=== PATIENT | female | born 1960 | race Caucasian/White ===

== ENCOUNTER 2019-10-13 11:19 | Inpatient (IN) | payer BC ==
[~2019-10-13] VITALS: Ht 172.7 cm; Wt 47.2 kg
--- NOTE | ~2019-10-13 | EKG ---
[place], [place] ELECTROCARDIOGRAM REPORT NAME: SAGAR AGUDELO UNIT #: [id number] ROOM: [facility] DOCTOR: MARQUIS DRAFT REPORT BIRTHDATE: [birth year] [facility] Test Date: 2019-10-13 Test Time: 11:19:58 Pat Name: SAGAR AGUDELO Department: Room: [facility] Gender: F Otolaryngologist: : 1960 Requested By: KOKO CRUZ Order Number: [id number] Reading MD: German Stoddard MD Measurements Intervals [place] Rate: 120 P: 62 IL: 146 QRS: -76 QRSD: 93 T: 207 QT: 333 QTc: 471 Interpretive Statements Sinus tachycardia Probable left atrial enlargement Markedly posterior QRS axis Borderline low voltage, extremity leads Nonspecific T abnormalities, lateral leads Electronically Signed On 10-19-2019 6:56:28 PST by German Stoddard MD CM:EKGRPT:ELECTROCARDIOGRAM REPORT [id number] KOKO CHO DRAFT REPORT KOKO CRUZ M.D.
--- NOTE | ~2019-10-13 | EKG ---
[place], [place] ELECTROCARDIOGRAM REPORT NAME: SAGAR AGUDELO UNIT #: [id number] ROOM: [facility] DOCTOR: MARQUIS DRAFT REPORT BIRTHDATE: [birth year] [facility] Test Date: 2019-10-13 Test Time: 14:39:16 Pat Name: SAGAR AGUDELO Department: Room: [facility] Gender: F Melter Assistant: Barbi Olivarez : 1960 Requested By: KOKO CRUZ Order Number: [id number] Reading MD: German Stoddard MD Measurements Intervals [place] Rate: 121 P: 35 DE: 213 QRS: -38 QRSD: 92 T: 224 QT: 368 QTc: 523 Interpretive Statements Sinus tachycardia Prolonged DE interval Probable left atrial enlargement Left axis deviation Low voltage, extremity leads Abnormal R-wave progression, late transition Nonspecific T abnormalities, lateral leads Prolonged QT interval Electronically Signed On 10-19-2019 6:56:30 PST by German Stoddard MD CM:EKGRPT:ELECTROCARDIOGRAM REPORT [id number] KOKO CHO DRAFT REPORT KOKO CRUZ M.D.
--- NOTE | ~2019-10-13 | O ---
[place], [place] OPERATIVE NOTE NAME: SAGAR AGUDELO UNIT #: [id number] ROOM: [facility] DOCTOR: MONALISA RIDER MD BIRTHDATE: [birth year] DOS: 10/13/2019 PROCEDURE: Intubation. She was intubated at approximately 3:30 p.m. The patient's intubation was requested by Dr. Stoddard and by Dr. Nguyen. The patient was given 50 mg of Diprivan, 50 mg of succinylcholine. She was intubated with the GlideScope. On the first attempt, the tube was placed by the resident in the esophagus, but the patient was vomiting and all of vomitus came up through the endotracheal tube and not in the oropharynx and not into the trachea of the lungs. She was intubated then by me, Dr. Pearl with a #7.5 oral endotracheal tube. They made a single attempt. There was positive end tidal CO2. The tube was taped at 21 cm. Breath sounds were equal bilaterally. After suctioning the tube, there was nothing each in the endotracheal tube and the patient was then placed on ventilator settings per Dr. Vikram Nguyen. MONALISA RIDER MD CM:OPRECORD:OPERATIVE NOTE [id number] MONALISA RIDER MD 10/13/19 1616 interface
[~2019-10-13 11:19] MED LIST: AMBIEN10 M1 PO; AUGMENTIN 875875 MG PO; LEXAPRO10 MG PO; MOTRIN800 MG PO; SYNTHROID,LEV100 MCG PO
[2019-10-13 11:20] VITALS: BP 98/57
[2019-10-13 11:45] LABS: HEMATOCRIT 41.6 % (37.0-47.0); HEMOGLOBIN 13.3 g/dl (12.0-16.0); MEAN CELL VOLUME 120.2 fl (81.0-99.0); MEAN CORPUSCULAR HGB 38.4 pg (27.0-31.0); MEAN PLATELET VOLUME 9.3 fl (9.6-12.3); PLATELET COUNT AUTOMATED 126 10*3/uL (130-400); RED BLOOD COUNT 3.46 10*6/uL (4.10-5.10); RED CELL DISTRI WIDTH 12.2 % (0-14.5); WHITE BLOOD COUNT 15.8 10*3/uL (4.8-10.8)
[2019-10-13 11:54] LABS: ABG HCO3 2.7 mmol/l (22-26); ARTERIAL BLOOD GAS PO2 99.2 mmHg (80-90)
[2019-10-13 11:56] LABS: INTERNATIONAL NORM RATIO 1.1 (2.0-3.5)
[2019-10-13 11:58] LABS: ABG BASE EXCESS -27.6 mmol/L (-2.0-2.0)
[2019-10-13 12:00] LABS: ARTERIAL BLOOD GAS PH 7.058 (7.35-7.45)
[2019-10-13 12:00] LABS: ACETAMINOPHEN (TYLENOL) < 5.0 ug/ml (10-30)
[2019-10-13 12:01] LABS: ALBUMIN 3.3 gm/dl (3.1-4.5); ALKALINE PHOSPHATASE 231 U/L (45-117); BUN 18 mg/dl (7-24); CHLORIDE 98 mmol/L (98-107); CREATININE 1.02 mg/dL (0.55-1.02); SGOT/AST 198 IU/L (3-35); SGPT/ALT 63 U/L (12-78); SODIUM 136 mmol/L (136-145); TOTAL PROTEIN 7.7 gm/dL (6.4-8.2)
[2019-10-13 12:02] LABS: TROPONIN I < 0.015 ng/ml (<0.045)
[2019-10-13 12:19] LABS: PLATELET SUFFICIENCY LOW (NORMAL); TOTAL CELLS COUNTED 100 #CELLS
[2019-10-13 12:21] LABS: STOMATOCYTE FEW
[2019-10-13 12:34] VITALS: BP 100/76
[2019-10-13 13:49] VITALS: BP 96/58
[2019-10-13 14:15] VITALS: BP 101/56
[2019-10-13 15:05] LABS: ABG HCO3 3.8 mmol/l (22-26); ABG O2 SATURATION 91.3 % (95-97); ARTERIAL BLOOD GAS PCO2 15.6 mmHg (35-45); ARTERIAL BLOOD GAS PO2 79.2 mmHg (80-90)
[2019-10-13 15:10] LABS: ABG BASE EXCESS -26.3 mmol/L (-2.0-2.0)
[2019-10-13 15:11] LABS: ARTERIAL BLOOD GAS PH 7.012 (7.35-7.45)
[2019-10-13 16:27] LABS: HEMATOCRIT 36.5 % (37.0-47.0); HEMOGLOBIN 11.2 g/dl (12.0-16.0); MEAN CELL VOLUME 122.9 fl (81.0-99.0); MEAN CORPUSCULAR HGB 37.7 pg (27.0-31.0); MEAN CORPUSCULAR HGB CONC 30.7 g/dl (33.0-37.0); MEAN PLATELET VOLUME 9.6 fl (9.6-12.3); PLATELET COUNT AUTOMATED 96 10*3/uL (130-400); RED BLOOD COUNT 2.97 10*6/uL (4.10-5.10); RED CELL DISTRI WIDTH 12.1 % (0-14.5)
[2019-10-13 16:48] LABS: BILIRUBIN 2+ (NEGATIVE); BLOOD 3+ (NEGATIVE); CLARITY SL CLOUDY (CLEAR); COLOR YELLOW (YELLOW); GLUCOSE NEGATIVE (NEGATIVE); KETONE 3+ (NEGATIVE); LEUKO ESTERASE NEGATIVE (NEGATIVE); NITRITE NEGATIVE (NEGATIVE); PH 5.5 (5.0-9.0); SPECIFIC GRAVITY >= 1.030 (1.005-1.030)
[2019-10-13 16:52] LABS: TOTAL CELLS COUNTED 100 #CELLS
[2019-10-13 16:59] LABS: POLYCHROMASIA SLIGHT
[2019-10-13 16:59] LABS: URINE AMPHETAMINES < 1000 (1000ng/ml); URINE BARBITURATES < 200 (200ng/ml); URINE BENZODIAZEPINES < 200 (200ng/ml); URINE CANNABINOIDS (THC) > 50 (50ng/ml); URINE COCAINE < 300 (300ng/ml); URINE METHADONE < 300 (300ng/ml); URINE OPIATES < 300 (300ng/ml)
[2019-10-13 17:01] LABS: PLATELET SUFFICIENCY LOW (NORMAL)
[2019-10-13 17:03] LABS: URINE PHENCYCLIDINE < 25 (25ng/ml)
[2019-10-13 17:15] LABS: BACTERIA 2+; FINE GRANULAR CAST TNTC; HYALINE CAST TNTC
[2019-10-13 17:16] LABS: MUCOUS 2+
[2019-10-13 18:07] LABS: BASO % 0.2 % (0.0-1.0); EOS # 0.1 10*3/uL (0.0-0.4); EOS % 1.2 % (1.0-4.0); LYMPH # 0.3 10*3/uL (1.3-4.4); LYMPH % 2.9 % (27.0-41.0); MONO # 0.7 10*3/uL (0.1-1.0); MONO % 6.5 % (3.0-9.0); NEUT # 9.9 10*3/uL (2.3-7.9); NEUT % 88.6 % (47.0-73.0)
== END 2019-10-13 18:39 | disposition short-term general hospital (02) | DRG 871 ==
LOC: ED 11:19 → EDHOLD 13:25 → ICCU 13:48
PROVIDERS: Emergency Medicine; Internal Medicine; Nurse Practitioner Family; ADMIT Internal Medicine
PROC: 0BH17EZ Insertion of Endotracheal Airway into Trachea, Via Natural or Artificial Opening (ICD-10-PCS; principal; 2019-10-13)
PROC: 5A1935Z Respiratory Ventilation, Less than 24 Consecutive Hours (ICD-10-PCS; principal; 2019-10-13)
PROC: B548ZZA Ultrasonography of Superior Vena Cava, Guidance (ICD-10-PCS; principal; 2019-10-13)
PROC: 02HV33Z Insertion of Infusion Device into Superior Vena Cava, Percutaneous Approach (ICD-10-PCS; principal; 2019-10-13)
DX: A41.9 Sepsis, unspecified organism (principal); J96.00 Acute respiratory failure, unspecified whether with hypoxia or hypercapnia; E43 Unspecified severe protein-calorie malnutrition; G93.41 Metabolic encephalopathy; J69.0 Pneumonitis due to inhalation of food and vomit; K92.2 Gastrointestinal hemorrhage, unspecified; E87.2 Acidosis; E87.3 Alkalosis; Z68.1 Body mass index [BMI] 19.9 or less, adult; R64 Cachexia; F17.210 Nicotine dependence, cigarettes, uncomplicated; R65.20 Severe sepsis without septic shock; E03.9 Hypothyroidism, unspecified; E80.6 Other disorders of bilirubin metabolism; F10.20 Alcohol dependence, uncomplicated; K08.89 Other specified disorders of teeth and supporting structures; K14.8 Other diseases of tongue; Z79.899 Other long term (current) drug therapy; Z90.710 Acquired absence of both cervix and uterus; Z82.49 Family history of ischemic heart disease and other diseases of the circulatory system; Z86.711 Personal history of pulmonary embolism; Z85.3 Personal history of malignant neoplasm of breast; Z82.0 Family history of epilepsy and other diseases of the nervous system; Z71.6 Tobacco abuse counseling; Z97.2 Presence of dental prosthetic device (complete) (partial)